=== PATIENT | female | born 1975 | race Caucasian/White ===

== ENCOUNTER 2020-12-03 14:55 | Outpatient (CLI) | payer OTHER | END 2020-12-03 14:56 | disposition critical access hospital (66) | LOC: EMS 14:55 | DX: I10 Essential (primary) hypertension (principal) | CPT/HCPCS: A0425; A0429 ==

== ENCOUNTER 2020-12-03 15:24 | Emergency (ER) | payer OTHER ==
--- NOTE | 2020-12-03 15:38 | ED Physician Documentation ---
History of Present Illness - Stated complaint Stated Complaint: HBP - Additonal information Additional information: 45-year-old female presents to the emergency department for evaluation of elevated blood pressure. She states that over the last year her doctor has been told telling her to monitor her blood pressure which has been in the 140s and 150s systolic over 90s. However over the last week she has been taking her blood pressure more frequently as she has felt a fullness and pressure in her left ear. She has noted that her blood pressures consistently in the 160-180/110 range. She did call her primary care doctor to discuss this but her doctor told her that since her blood pressure was over 180 it qualified his hypertensive emergency and she should go immediately to the ER. She was advised not to drive and to take an ambulance. Patient denies that she was having any chest pain, no headaches, no vomiting abdominal pain dysuria. No focal neuro deficits. she reports that she feels well righ tnow and would not have come to the ED if not at the behest of her pcp in [place] pmh: possible htn (not yet dx) meds: lexapro SOC: no tobacco, vaping. Rare etoh FH: non contributory Review of Systems Constitutional: denies: Fever, Chills Eyes: reports: Reviewed and negative Ears: reports: Ear pain (Pressure and fullness on the left side) Nose: reports: Reviewed and negative Throat: reports: Reviewed and negative Cardiac: denies: Chest pain / pressure, Palpitations, Pedal edema, Calf pain Respiratory: denies: Dyspnea, Cough GI: denies: Abdominal Pain, Abdominal Swelling, Nausea, Vomiting : denies: Dysuria, Frequency, Hesitancy Skin: denies: Rash, Lesions Musculoskeletal: denies: Neck pain, Back pain, Extremity pain Neurologic: denies: Generalized weakness, Numbness, Difficulty speaking PD PAST MEDICAL HISTORY - Present Medications Home Medications: Ambulatory Orders Medication Instructions Recorded Confirmed Escitalopram Oxalate [Lexapro] 1 tab PO DAILY 12/03/20 12/03/20 hydroCHLOROthiazide [Hydrodiuril] 12.5 mg PO DAILY #30 12/03/20 - Allergies Allergies/Adverse Reactions: Allergies Allergy/AdvReac Type Severity Reaction Status Date / Time minocycline Allergy Severe Anaphylaxis Verified 12/03/20 15:40 PD ED PE NORMAL - General General: Alert and oriented X 3, No acute distress - HEENT HEENT: Atraumatic, PERRL, Ears normal, Moist mucous membranes, Pharynx benign - Neck Neck: Supple, no meningeal sign, No adenopathy, Thyroid normal - Cardiac Cardiac: RRR, No murmur, Strong equal pulses (2+ cartid and radial bilaterally) - Respiratory Respiratory: No respiratory distress, Clear bilaterally - Abdomen Abdomen: Normal bowel sounds, Soft, Non tender, Non distended - Back Back: No CVA TTP, No spinal TTP - Derm Derm: Normal color, Warm and dry, No rash - Extremities Extremities: No deformity - Neuro Neuro: Alert and oriented X 3, Normal speech Eye Opening: Spontaneous Motor: Obeys Commands Verbal: Oriented GCS Score: 15 - Psych Psych: Normal mood Results - Vitals Vitals: Vital Signs - 24 hr 12/03/20 15:25 Temperature 37.1 C Heart Rate 69 Respiratory 16 Rate Blood Pressure 185/111 H O2 Saturation 99 Oxygen O2 Source Room air - EKG (time done) 1527 Rate: Rate (enter#) (56) Rhythm: NSR [place]: Normal Intervals: Normal MI QRS: Normal Ischemia: Normal ST segments Compare to prior EKG: Old EKG unavailable Computer interpretation: Agree with computer - Labs Labs: Laboratory Tests 12/03/20 12/03/20 12/03/20 15:50 15:50 15:50 WBC 7.4 RBC 4.37 Hgb 14.2 Hct 41.0 MCV 93.8 MCH 32.5 H MCHC 34.6 RDW 12.4 Plt Count 294 MPV 10.1 Neut # (Auto) 4.8 Lymph # (Auto) 1.8 Hunt # (Auto) 0.4 Eos # (Auto) 0.2 Baso # (Auto) 0.1 Absolute Nucleated RBC 0.00 Nucleated RBC % 0.0 Sodium 136 Potassium 3.5 Chloride 103 Carbon Dioxide 23 Anion Gap 10.0 BUN 18 Creatinine 0.6 Estimated GFR (MDRD) 109 Glucose 95 Calcium 9.4 Total Bilirubin 1.0 AST 20 ALT 18 Alkaline Phosphatase 50 Troponin I High Sens 2.9 Total Protein 7.1 Albumin 4.5 Globulin 2.6 Albumin/Globulin Ratio 1.7 Lipase 32 TSH 12/03/20 15:50 WBC RBC Hgb Hct MCV MCH MCHC RDW Plt Count MPV Neut # (Auto) Lymph # (Auto) Hunt # (Auto) Eos # (Auto) Baso # (Auto) Absolute Nucleated RBC Nucleated RBC % Sodium Potassium Chloride Carbon Dioxide Anion Gap BUN Creatinine Estimated GFR (MDRD) Glucose Calcium Total Bilirubin AST ALT Alkaline Phosphatase Troponin I High Sens Total Protein Albumin Globulin Albumin/Globulin Ratio Lipase TSH 1.66 - Rads (name of study) CXR Radiology: Final report received (no definite acute cardiopulmonary. possbile mild apical scarring bilaterally) PD MEDICAL DECISION MAKING - ED course Complexity details: reviewed results, re-evaluated patient, considered differential, d/w patient ED course: 45-year-old female presents the emergency department at the behest of her primary care doctor for evaluation of an elevated blood pressure which was 180/110 at home. While here in the emergency department she has had modestly elevated blood pressures in the 1 65-1 80 range. Screening EKG, chest x-ray and labs are all unrevealing. She has no complaints of headache, chest pain abdominal pain nausea or vomiting. In review of history it does sound as though her doctor has been monitoring her blood pressure for the last year and it may be time to consider initiation of medication. I am advising patient to check her blood pressure every morning at the same time for the next week. If consistently greater than 160 she will start hydrochlorothiazide. At this time there does not appear to be any hypertensive urgency. Emergent return precautions were discussed. Departure - Departure Disposition: 01 Home, Self Care Clinical Impression: Elevated blood-pressure reading without diagnosis of hypertension Condition: Stable Record reviewed to determine appropriate education?: Yes Instructions: High Blood Pressure Prescriptions: hydroCHLOROthiazide [Hydrodiuril] 12.5 mg PO DAILY #30 Comments: Sally you are seen in the emergency department today for concerns of an elevated blood pressure. While your blood pressures have been modestly elevated in the 165-180 range while here in the emergency department the rest of your screening labs and tests are entirely unremarkable. It is important to have good management of your blood pressure in the long-term. I would like you to check your blood pressure at home in the same position at the same time every morning for 1 week. If your systolic blood pressures are consistently greater than 160 then please fill the prescription for the hydroc hlorothiazide and take as directed. Please schedule an appointment for follow- up with your primary care doctor in about 1 to 2 weeks for reevaluation. If at any point you ever develop chest pain, have a suddenly severe headache, have arm or jaw pain uncontrolled vomiting or have any other emergent medical concerns then please return immediately to the ER for a second evaluation.
[2020-12-03 16:03] LABS: BASOPHILS # (AUTO) 0.1 10^3/uL (0.0-0.1); BASOPHILS % (AUTO) 0.9 %; EOSINOPHILS # (AUTO) 0.2 10^3/uL (0.0-0.7); EOSINOPHILS % (AUTO) 3.3 %; HGB - HEMOGLOBIN 14.2 g/dL (12.0-16.0); LYMPHOCYTES # (AUTO) 1.8 10^3/uL (1.5-3.5); LYMPHOCYTES % (AUTO) 24.4 %; MEAN CORPUSCULAR HEMOGLOBIN 32.5 pg (27.0-31.0); MEAN CORPUSCULAR HGB CONC 34.6 g/dL (32.0-36.0); MEAN CORPUSCULAR VOLUME 93.8 fL (81.0-99.0); MEAN PLATELET VOLUME 10.1 fL (7.9-10.8); MONOCYTES # (AUTO) 0.4 10^3/uL (0.0-1.0); MONOCYTES % (AUTO) 5.7 %; NEUTROPHILS # (AUTO) 4.8 10^3/uL (1.5-6.6); NEUTROPHILS % (AUTO) 65.4 %; PLT - PLATELET COUNT 294 10^3/uL (130-450); RED BLOOD COUNT 4.37 10^6/uL (4.20-5.40); RED CELL DISTRIBUTION WIDTH 12.4 % (12.0-15.0); WHITE BLOOD COUNT 7.4 x10^3/uL (4.8-10.8)
--- NOTE | 2020-12-03 16:04 | XRAY Report ---
PROCEDURE: Chest 1 View X-Ray INDICATIONS: HTN TECHNIQUE: One view of the chest was acquired. COMPARISON: None. FINDINGS: Surgical changes and devices: None. Lungs and pleura: No pleural effusions or pneumothorax. There is mild apical pleural parenchymal thi ckening bilaterally compatible scarring. No focal consolidation. Mediastinum: Mediastinal contours appear normal. Heart size is normal. Bones and chest wall: No suspicious bony lesions. Overlying soft tissues appear unremarkable. IMPRESSION: 1. No definite acute cardiomegaly disease. 2. Mild apical scarring bilaterally. Reviewed by: Ronny Fuller MD on 12/03/2020 4:03 PM PDT Approved by: Ronny Fuller MD on 12/03/2020 4:03 PM PDT Station ID: [id number]
[2020-12-03 16:13] LABS: ALBUMIN 4.5 g/dL (3.2-5.5); ALBUMIN/GLOBULIN RATIO 1.7 (1.0-2.2); CALCIUM 9.4 mg/dL (8.5-10.3); CREATININE 0.6 mg/dL (0.4-1.0); POTASSIUM 3.5 mmol/L (3.5-5.0); TOTAL PROTEIN 7.1 g/dL (6.7-8.2)
[2020-12-03 17:00] VITALS: BP 148/98
== END 2020-12-03 17:00 | disposition home or self-care (01) ==
LOC: ED 15:24
DX: R03.0 Elevated blood-pressure reading, without diagnosis of hypertension (principal)
CPT/HCPCS: 36415; 80053; 83690; 84443; 84484; 85025; 93005; 99284